=== PATIENT | male | born 1955 | race Caucasian/White ===

== ENCOUNTER 2018-09-11 17:29 | Inpatient (IN) | payer OTHER, MEDICARE ==
[~2018-09-11] VITALS: Ht 170.2 cm; Wt 77.6 kg
[2018-09-11] MEDS ORDERED: CLON1 PO (17:39)
[2018-09-11] MEDS ORDERED: CHOL10002 PO (17:39)
[2018-09-11] MEDS ORDERED: ASPI81CH PO (17:39)
[2018-09-11] MEDS ORDERED: DOC250 PO (17:40)
[2018-09-11] MEDS ORDERED: GEMF600 PO (17:41)
[2018-09-11] MEDS ORDERED: Artificial Tear15 ML BOTHEYES (17:41)
[2018-09-11] MEDS ORDERED: MORPHINE SULFATE PO (17:44)
[2018-09-11] MEDS ORDERED: PRIM50 PO (17:45)
[2018-09-11] MEDS ORDERED: SIMV40 PO (17:46)
[2018-09-11] MEDS ORDERED: SERT100 PO (17:46)
[2018-09-11] MEDS ORDERED: Morphine S20 MG/5 ML PO (19:35)
[2018-09-11] MEDS ORDERED: Omeprazole20 M1 PO (21:14)
--- NOTE | 2018-09-12 04:54 | NUR ---
SHIFT SUMMARY PT ADMITTED FOR ACUTE FRANTZ. PT IS A&O, ABLE TO MAKE NEEDS KNOWN, INDEP IN THE ROOM. HE HAS BEEN NPO SINCE MIDNIGHT IN PREP FOR SURGERY TODAY. MEDICATED FOR PAIN AND NAUSEA PER EMAR. MAINTENENCE FLUIDS INFUSING. WILL CTM UNTIL PASS TO NEXT SHIFT.
--- NOTE | 2018-09-12 11:24 | NUR ---
INTO SDS VIA [facility]. PT A&OX3-REPORTS 02/21 ABDOMINAL PAIN. HISTORY AND ALLERGIES REVIEWED. NPO CONFIRMED. HISTORY OR RIGHT LOBECTOMY-OTHER LUNG ABARCA CLEAR. SATS>90% ON RA. DUO NEB GIVEN PER ORDER.
--- NOTE | 2018-09-12 11:39 | NUR ---
PT TO DAY SURGERY APPROX 10 MINUTES AGO
--- NOTE | 2018-09-12 19:11 | NUR ---
POST OP PT ARRIVAL TO UNIT S/P SHAKA LANDRY. POST OP VSS AND IN PROGRESS. PT WAS ABLE TO AMBULATE TO BED FROM [facility]. PT COMPLAINING OF ABD PAIN AND NAUSEA. CALLING DR. CASTILLO FOR POST OP ORDERS NOW. CALL LIGHT WITHIN REACH. WILL REPORT TO SERENA MELVIN.
--- NOTE | 2018-09-13 04:20 | NUR ---
SHIFT SUMMARY: PT HAS DONE WELL THIS SHIFT. A&O X4. VS WNL. PAIN MANAGED WITH 2 NORCO PER EMAR. PT ARNOLD CLR LIQS. DENIES N/V T/O SHIFT. IND IN ROOM. AMBULATING HALLS. GAUZE TO LAP SITES C/D/I. GIVEN KLONOPIN FOR TREMORS AT BASELINE.
[2018-09-13] MEDS ORDERED: Norco 7.5-3251 EACH PO (10:28)
--- NOTE | 2018-09-13 10:43 | NUR ---
DISCHARGE PT AND EDUCATED ON AND RECEIVED PRINTED DC INSTRUCTIONS. BOTH VERB AN UNDERSTANDING. HARD RX FOR NORCO GIVEN TO PT. IVS DC'D. ALL PERSONAL BELONGINGS SENT WITH PT.
== END 2018-09-13 10:45 | disposition home or self-care (01) | DRG 419 ==
LOC: ER 17:29 → SURS 18:38
PROVIDERS: ADMIT Surgery
PROC: BF12YZZ Fluoroscopy of Gallbladder using Other Contrast (ICD-10-PCS; 2018-09-12)
PROC: 0FT44ZZ Resection of Gallbladder, Percutaneous Endoscopic Approach (ICD-10-PCS; principal; 2018-09-12 13:00)
DX: K81.0 Acute cholecystitis (principal); E78.5 Hyperlipidemia, unspecified; Z87.891 Personal history of nicotine dependence; Z85.118 Personal history of other malignant neoplasm of bronchus and lung; Z90.2 Acquired absence of lung [part of]
CPT/HCPCS: 74300; 88304; 88305; 93005; 93010; 96374; 96375; 99285-25; C1729; J0690; J1100; J1170; J1885; J2250; J2405; J2710; J3010; J7030; J7120